=== PATIENT | male | born 1985 | race Caucasian/White ===

== ENCOUNTER 2020-07-21 07:54 | Emergency (ER) | payer MEDICAID ==
[~2020-07-21] VITALS: Ht 170.2 cm; Wt 114.6 kg
[~2020-07-21 07:54] MED LIST: CYCL-1 PO; DOCU100C40 PO
[2020-07-21 07:58] VITALS: BP 144/74
[2020-07-21] MEDS ORDERED: IBUP-1984 PO (08:25)
== END 2020-07-21 08:54 | disposition home or self-care (01) ==
LOC: ER 07:54
DX: S81.811A Laceration without foreign body, right lower leg, initial encounter (principal); M79.661 Pain in right lower leg; Z88.0 Allergy status to penicillin; Z79.899 Other long term (current) drug therapy; W45.8XXA Other foreign body or object entering through skin, initial encounter; Y93.89 Activity, other specified; Y92.89 Other specified places as the place of occurrence of the external cause; Y99.8 Other external cause status
CPT/HCPCS: 99282

== ENCOUNTER 2020-10-26 07:11 | Emergency (ER) | payer MEDICAID ==
[~2020-10-26] VITALS: Ht 170.2 cm; Wt 118.1 kg
[2020-10-26] MEDS ORDERED: HYDROcodone/acetaminophen 5mg/325mg tablet PO ONE (08:15)
[2020-10-26] MEDS ORDERED: acetaminophen 325mg tablet PO ONE (08:15)
[2020-10-26] MEDS ORDERED: ketorolac trometh inj. 60 MG/2 ML VIAL IM ONE (08:15)
[2020-10-26] MEDS ORDERED: ondansetron 4mg rapidly disintigrating tab PO ONE (08:15)
[2020-10-26 09:12] VITALS: BP 122/78
== END 2020-10-26 09:52 | disposition home or self-care (01) ==
LOC: ER 07:13
DX: M79.661 Pain in right lower leg (principal); Z88.0 Allergy status to penicillin; Z79.899 Other long term (current) drug therapy
CPT/HCPCS: 93971; 96372; 99284; J1885

== ENCOUNTER → 2021-01-02 | Emergency (ER) | payer MEDICAID ==
[~2021-01-02] VITALS: Ht 170.2 cm; Wt 113.5 kg
[~2021-01-02] MED LIST changes: +COROTSUS OT
[2021-01-02 08:59] VITALS: BP 131/82
== END | disposition home or self-care (01) ==
LOC: ER 08:11
DX: H60.93 Unspecified otitis externa, bilateral (principal); Z88.1 Allergy status to other antibiotic agents; Z79.899 Other long term (current) drug therapy
CPT/HCPCS: 99283